=== PATIENT | male | born 1945 | race Caucasian/White ===

== ENCOUNTER → 2021-05-19 11:18 | Outpatient (CLI) | payer MEDICARE, SELFPAY ==
--- NOTE | ~2021-05-19 | XR_ITS ---
XR knee LT min 4V DATE: 05/19/2021 11:43 INDICATION: Fall 4 days ago. 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 No fracture or dislocation or joint effusion is evident. There is osteopenia. IMPRESSION: No fracture or dislocation or joint effusion Status post left total knee arthroplasty Reviewed, dictated and finalized at location B. [employer]
== END ==
PROVIDERS: PCP Family Medicine; Visit Provider Family Medicine
DX: M25.462 Effusion, left knee (principal); M85.852 Other specified disorders of bone density and structure, left thigh; Z96.612 Presence of left artificial shoulder joint
CPT/HCPCS: 73564